=== PATIENT | female | born 1940 | race Caucasian/White ===

== ENCOUNTER 2017-11-01 15:04 | Inpatient (IN) | payer MEDICARE ==
[2017-11-01 15:59] VITALS: BP 127/82
[2017-11-01] MEDS ORDERED: Maalox 30 mL Cup PO PRN (17:58)
[2017-11-01] MEDS ORDERED: Magnesium Hydroxide (MOM) 30 mL UDC PO PRN (17:58)
[2017-11-02] MEDS: Multivitamin Tab PO SCH (09:03)
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
[2017-11-03] MEDS: Multivitamin Tab PO SCH (09:52)
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
[2017-11-04] MEDS: Multivitamin Tab PO SCH (08:33)
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
[2017-11-05] MEDS: Multivitamin Tab PO SCH (08:50)
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
[2017-11-06] MEDS: Multivitamin Tab PO SCH (08:12)
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
[2017-11-07] MEDS: Multivitamin Tab PO SCH (08:08)
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
[2017-11-08] MEDS: Multivitamin Tab PO SCH (08:55)
--- NOTE | 2017-11-08 15:31 | Progress Notes ---
DATE: 11/08/2017 SUBJECTIVE: Staff was spoken to. The patient is interviewed. Mood is noted to be irritable. Affect is constricted. Coping skills at this time are noted to be still poor. Insight and judgment are noted to be still impaired. Impulse control seems to be limited. The patient is still angry at her . The patient has finally made a phone call to him today and the patient has been able to verbalize some of her concerns. The patient is currently on 25 mg of the Seroquel and has been able to tolerate. ASSESSMENT: The patient is still impulsive. PLAN: To continue the patient with the supportive therapy and followup. JOB# [id number]
[2017-11-09] MEDS: Multivitamin Tab PO SCH (08:56)
--- NOTE | 2017-11-10 04:18 | Progress Notes ---
DATE: 11/09/2017 SUBJECTIVE: Staff was spoken to. The patient is interviewed. Mood is noted to be irritable. Affect is constricted. The patient is still very angry at her . The patient is still noted to have been aggressive. Insight and judgment at this time are noted to be still impaired. Impulse control seems to be limited. No side effects of the Seroquel are noted. The patient is being closely monitored at this time. The patient has finally agreed to talk to her yesterday. ASSESSMENT: The patient is still impulsive. PLAN: To continue the patient with the supportive therapy and follow up. JOB# [id number]
[2017-11-10] MEDS: Multivitamin Tab PO SCH (08:15)
--- NOTE | 2017-11-11 02:43 | Progress Notes ---
DATE: 11/10/2017 PSYCHIATRIC PROGRESS NOTE SUBJECTIVE: Staff was spoken to. The patient is interviewed. Mood is noted to be less irritable. Affect is appropriate. The patient is stating that she misses her and she states that I can call her now and then see when he can come and then pick her up. The patient's aggression is coming under control. No side effects to the medications are noted. The patient has been provided with individual as well as group counseling. The patient is currently on Seroquel and has been able to tolerate the medication. ASSESSMENT: The patient's impulsivity is coming under control. PLAN: To continue the patient with the supportive therapy and request the caser shoe parts to contact the . JOB# [id number]
[2017-11-11] MEDS: Multivitamin Tab PO SCH (10:13)
--- NOTE | 2017-11-11 10:55 | Progress Notes ---
DATE: 11/11/2017 PSYCHIATRIC PROGRESS NOTE SUBJECTIVE: Staff was spoken to. The patient is interviewed. Mood is noted to be less irritable. Affect is appropriate. The patient's insight and judgment are noted to be improving. Impulse control seems to be fair. No side effects to the medications are noted. The patient has been able to verbalize some of her concerns. ASSESSMENT: The patient is stabilizing and the impulsivity is coming under control. PLAN: Plan to ask the rn field case manager to get in touch with the and then see if we can get her out of here tomorrow. JOB# [id number]
[2017-11-12] MEDS: Multivitamin Tab PO SCH (10:34)
--- NOTE | 2017-11-14 09:45 | Discharge Summary ---
DATE OF DISCHARGE: 11/12/2017 IDENTIFYING DATA: The patient is a 77-year-old woman, , living with her . JUSTIFICATION OF HOSPITALIZATION: The patient is admitted on 5150 as being danger to others and being gravely disabled. CHIEF COMPLAINT: "We just had an argument, that's all." DIAGNOSES AT THE TIME OF ADMISSION: AXIS I: Depressive disorder, not otherwise specified. B. Rule out dementia. AXIS II: None. AXIS III: As per Dr. Andrade. HISTORY OF PRESENT ILLNESS: Please refer to the 11/02/2017 dictation done by me. Physical examination was done by Dr. Andrade and is noted to be within normal limits. The lab studies done during the hospitalization have been reviewed by Dr. Andrade. HOSPITAL COURSE AND RESPONSE TO TREATMENT: The patient has been observed on inpatient unit, provided with supportive psychotherapy. The patient has been closely monitored. The patient has been provided with individual as well as family counseling. The patient has been very angry and upset that the has been giving all her stuff heavy and has been with other woman. The patient's has been mentioning that she has been for so long. He never had any of these issues. The patient has been closely monitored. The patient has been placed on the Seroquel, which was gradually increased and the patient has been provided with individual as well as family counseling. The patient started to do fairly well and the patient was finally discharged with recommendation that she is going to be seeking treatment on an outpatient basis. MENTAL STATUS EXAMINATION AT THE TIME OF DISCHARGE: The patient's mood is noted to be less irritable. Affect is appropriate. The patient and her have been able to resolve some of the conflicts, the patient is not presenting with any threat to harm self or others and hence the patient has been discharged to be followed up on an outpatient basis. The patient's mood is less irritable. Affect is appropriate. Insight and judgment noted to be fair. Impulse control is also noted to be fair. The patient is willing to comply with the treatment. The patient is not presenting with any threats to harm self or others at the time of the discharge. DIAGNOSES AT THE TIME OF DISCHARGE: AXIS I: 1. Depressive disorder, not otherwise specified. 2. Psychosis, not otherwise specified. AXIS II: None. AXIS III: As per Dr. Andrade. AFTERCARE PLAN: The patient is discharged to self to be followed up on outpatient basis. JOB# [id number]
== END 2017-11-12 14:00 | disposition home or self-care (01) | DRG 885 ==
LOC: GERO2 15:04 → GERO 11-02 20:06
PROVIDERS: ADMIT Psychiatry & Neurology Psychiatry; ATTEND Psychiatry & Neurology Psychiatry
DX: F29 Unspecified psychosis not due to a substance or known physiological condition (principal); F03.91 Unspecified dementia, unspecified severity, with behavioral disturbance; N39.0 Urinary tract infection, site not specified; F32.9 Major depressive disorder, single episode, unspecified; M54.5 Low back pain; E78.5 Hyperlipidemia, unspecified; G89.29 Other chronic pain
CPT/HCPCS: 82948-90; G0410; Z7610